=== PATIENT | male | born 1960 | race Caucasian/White ===

== ENCOUNTER 2024-04-14 14:34 | Emergency (ER) | payer OTHER ==
[~2024-04-14] VITALS: Ht 180.3 cm; Wt 159.0 kg
[2024-04-14] MEDS ORDERED: ORPHENADRINE CITRATE 30 MG/ML AMP IM ONE (15:15)
[2024-04-14] MEDS ORDERED: KETOROLAC TROMETHAMINE 30 MG/ML SDV IM ONE (15:15)
[2024-04-14] MEDS ORDERED: ELIQUIS2.5 MG (15:18)
[2024-04-14] MEDS ORDERED: JANUVIA25 MG PO (15:18)
[2024-04-14] MEDS ORDERED: METOPROLOL TART50 MG PO (15:18)
[2024-04-14] MEDS ORDERED: ASPIRINCHW 81MG PO (15:18)
[2024-04-14] MEDS ORDERED: LOSARTAN POTASS50 MG PO (15:19)
[2024-04-14] MEDS ORDERED: JARDIANCE10 MG (15:19)
[2024-04-14] MEDS ORDERED: traMADol HCL 50 MG/TAB PO ONE (16:55)
[2024-04-14 17:21] LABS: URINE BLOOD DIPSTICK Negative (NEGATIVE); URINE GLUCOSE - DIPSTICK >=1000 mg/dL (NEGATIVE); URINE KETONE 15 mg/dL (NEGATIVE); URINE LEUK ESTERASE Negative (NEGATIVE); URINE NITRITE - DIPSTICK Negative (Negative); URINE PH 5.5 (4.5-8.0); URINE PROTEIN - DIPSTICK Negative (NEG-TRACE); URINE SPECIFIC GRAVITY 1.025; URINE UROBILINOGEN - DIPSTICK 0.2 E.U./dL (0.2)
[2024-04-14 17:22] LABS: URINE COLOR Yellow
[2024-04-14 17:33] VITALS: BP 106/63
[2024-04-14] MEDS ORDERED: MEDDOSEPAK PO (18:00)
[2024-04-14] MEDS ORDERED: MOTRIN400 MG/TAB PO (18:00)
[2024-04-14] MEDS ORDERED: CYCLOBENZAPRINE10 MG PO (18:00)
[2024-04-14] MEDS ORDERED: TRAMADOL HYDROC50 M1 PO (18:01)
[2024-04-14 18:07] VITALS: BP 106/63
== END 2024-04-14 18:26 | disposition home or self-care (01) | DRG 552 ==
LOC: ED 14:34
PROVIDERS: Nurse Practitioner
DX: M51.16 Intervertebral disc disorders with radiculopathy, lumbar region (principal); I10 Essential (primary) hypertension; E11.9 Type 2 diabetes mellitus without complications; I48.20 Chronic atrial fibrillation, unspecified; Z79.84 Long term (current) use of oral hypoglycemic drugs